=== PATIENT | male | born 1950 | race Caucasian/White ===

== ENCOUNTER 2016-11-20 15:44 | Emergency (ER) | payer OTHER, MEDICARE ==
[~2016-11-20] VITALS: Ht 175.3 cm; Wt 90.0 kg
[2016-11-20] MEDS ORDERED: SODIUM CHLORIDE FLUSH 10 ML SYR IV PRN (15:55)
[2016-11-20] MEDS ORDERED: SODIUM CHLORIDE FLUSH 3 ML SYR IV PRN (15:55)
[2016-11-20] MEDS ORDERED: ONDANSETRON 2 MG/ML (Z0FRAN) 2 ML VIAL IV ONE (15:55)
[2016-11-20] MEDS ORDERED: SODIUM CHLORIDE 250 ML IV PRN (15:55)
[2016-11-20] MEDS ORDERED: ALBUTEROL 0.083% NEB SOLUTION 2.5 MG/3 ML VIAL INH ONE (15:55)
--- NOTE | 2016-11-20 15:55 | NUR ---
Endotracheal intubation performed by ELYSSA Villagomez. Placement of 7.5 ET tube is at 22 cm at teeth. See anesthesia notes. Assisted by RT Izabel and Lalo POPE. Meds given by Andrei Fuentes PharmD. [facility] in room also.
[2016-11-20] MEDS ORDERED: ETOMIDATE IV ONE (16:10)
[2016-11-20] MEDS ORDERED: SUCCINYLCHOLINE 20 MG/ML 10 ML VIAL IV ONE (16:10)
[2016-11-20 16:11] LABS: BASOPHILS % (AUTO) 0 % (0-2); EOSINOPHILS # (AUTO) 0.3 10^3uL; EOSINOPHILS % (AUTO) 1 % (0-4); LYMPHOCYTES # (AUTO) 6.7 X10^3; MEAN CORPUSCULAR HEMOGLOBIN 27.4 PG (26.0-34.0); MEAN CORPUSCULAR VOLUME 87 FL (80-100); MEAN PLATELET VOLUME 10.4 FL (6.0-9.5); MONOCYTES # (AUTO) 1.8 X10^3; MONOCYTES % (AUTO) 10 % (3-11); NEUTROPHILS # (AUTO) 9.8 X10^3; NEUTROPHILS % (AUTO) 53 % (51-67); PLATELET COUNT 395 10^3uL (150-450); WHITE BLOOD COUNT 18.58 10^3uL (4.0-11.0)
[2016-11-20 16:12] LABS: MEAN CORPUSCULAR HGB CONC 31.7 g/dL (31.0-37.0)
[2016-11-20 16:14] LABS: ALBUMIN 4.8 g/dL (3.4-5.0); ANION GAP 22.6 MEQ/L (3-15); CALCULATED IONIZED CALCIUM 3.5 mg/dL (3.8-4.6); TOTAL PROTEIN 9.2 g/dL (6.4-8.5)
[2016-11-20] MEDS ORDERED: ROCURONIUM 50 MG/5 ML (ZEMURON) VIAL IV ONE (16:15)
[2016-11-20] MEDS ORDERED: LORazepam 2 MG/ML (ATIVAN) 1 ML VIAL ONE (16:15)
[2016-11-20] MEDS ORDERED: LORazepam 2 MG/ML (ATIVAN) 1 ML VIAL IV ONE (16:15)
[2016-11-20] MEDS ORDERED: LABETALOL HCL 20 MG/4 ML VIAL IV ONE (16:20)
[2016-11-20] MEDS ORDERED: ASPIRIN 600 MG PR ONE (16:20)
[2016-11-20] MEDS ORDERED: PIPERACILLIN/TAZOBACTAM 3.375 GM in SODIUM CHLORIDE 50 ML IV ONE (16:20)
[2016-11-20] MEDS ORDERED: LABETALOL HCL 100 MG/20 ML VIAL IV ONE (16:27)
--- NOTE | 2016-11-20 16:42 | NUR ---
Kathy Chew RN House Superviser contacted patient's daughter Imani Navarrete.
[2016-11-20] MEDS ORDERED: NITROGLYCERIN DRIP 25 MG/D5W 250 ML IV ONE (16:47)
--- NOTE | 2016-11-20 16:52 | NUR ---
Dr. Joyce is giving report to receiving physician Dr. Osman.
--- NOTE | 2016-11-20 16:53 | NUR ---
Patient's blood pressure is now 160/84.
--- NOTE | 2016-11-20 16:54 | NUR ---
Jamil 50 mg given left AC by Andrei Fuentes. Nitroglycerin drip started right forearm at 5 mcg/3 ml per hour.
[2016-11-20] MEDS ORDERED: HEPARIN DRIP 25000 UNIT/250 ML 250 ML IV ONE ×2 (16:57→18:15)
--- NOTE | 2016-11-20 17:15 | NUR ---
Aspirin suppository 325 mg given rectally Lalo Schuler RN.
--- NOTE | 2016-11-20 17:17 | NUR ---
Heparin drip 1000 units at 10 ml/hour started right forearm.
[2016-11-20 17:21] LABS: ABG OXYGEN SATURATION 97 % (95-98); ABG PCO2 69 mmHg (35-45); ABG PH 7.15 (7.35-7.45); ABG PO2 113 mmHg (80-105)
--- NOTE | 2016-11-20 17:22 | NUR ---
Nitro drip increased to 7 mcg/minute. Blood pressure 175/92.
[2016-11-20 17:47] VITALS: BP 175/92
--- NOTE | 2016-11-20 17:49 | Diagnostic Imaging Report ---
INDICATION: History of aspiration. FINDINGS: There is dense consolidated infiltrate in the right upper and right lower lobe. Left lung is well-aerated with minimal infiltrate. ET tube is present overlying the tracheal shadow in good position. Heart mildly enlarged. IMPRESSION: Satisfactory ET tube position with dense consolidated infiltrate in right lung. Dictated by: Dictated on workstation # [id number]
--- NOTE | 2016-11-20 18:01 | NUR ---
SVN given @ 1600. Pt. awake c/o SOA, frequent NPC. Pt. intubated after tx. by Sriram Limon CALENDAR CONTROL CLERK [employer]. See Vent notes.
--- NOTE | 2016-11-23 08:26 | PAIN MANAGEMENT ---
Date of note: 11/20/2016 Procedure: Emergent intubation secondary to respiratory distress and poor oxygenation This is a 66-year-old male patient who presents emergently in the ER. Anesthesia was consulted per Dr. Lee Joyce for the purpose of emergent intubation secondary to respiratory distress and poor oxygenation. ON arrival, found a 66-year-old male in quite a bit of respiratory distress. Oxygenation sats were in the 80s. He was very tachypneic, using accessory muscles to breathe. He was able to talk to us. States he feels like he is very shortness of breath and is getting worse. The patient said he woke up from sleeping, felt himself aspirate and self-presents to the ER. Upon arrival his oxygenation sats were in the 50s. The patient is to be transferred to [place]. Dr. Joyce contacted anesthesia for the purpose of emergent intubation secondary to the need for transport for patient management in [place]. At the bedside consent was obtained verbally per patient to proceed with intubation. Induction drugs of etomidate 20 mg and succinylcholine 100 mg both given IV. Paralysis was obtained. Cricoid pressure was held throughout. A 7.5 endotracheal tube was placed without difficulty x1 attempt to 22 cm at the teeth. Positive end-tidal CO2 per inline device was noted. Breath sounds were equal, although decreased in the right bases. The tube was secured and the patient was hand ventilated by Ambu bag per RT. At that point the physician wanted anesthesia to pass an NG tube. A 16-Danish NG tube was placed to the patient's right naris with positive auscultation of forced air over the epigastrium. Positive placement. It was then hooked to low continuous wall suction with positive stomach contents noted. That was secured into place. At that point in time, anesthesia was released. The patient's oxygenation had improved to 98%. It should also be stated, upon arrival, the patient's blood pressure was 240s/100s. Labetalol had been given just post intubation with pressures returning to 130s/70s. Dr. Joyce released anesthesia.
== END 2016-11-20 17:40 | disposition short-term general hospital (02) ==
LOC: ED 15:45
DX: J96.02 Acute respiratory failure with hypercapnia (principal); I11.9 Hypertensive heart disease without heart failure; I24.9 Acute ischemic heart disease, unspecified; J69.0 Pneumonitis due to inhalation of food and vomit; N17.9 Acute kidney failure, unspecified
CPT/HCPCS: 31500; 36415; 51702; 80053; 82550; 82553; 82803; 83605; 84484; 85025; 85610; 85730; 87040; 93005; 94640; 96365; 96375; 99285; J2543; J3490; 36600; 71010; 93010; 94002; 99291

== ENCOUNTER → 2016-11-20 | Outpatient (CLI) | payer OTHER, MEDICARE | LOC: EMS 17:34 | PROVIDERS: ATTEND Family Medicine | DX: J96.90 Respiratory failure, unspecified, unspecified whether with hypoxia or hypercapnia (principal) ==